=== PATIENT | female | born 1925 | race Caucasian/White ===

== ENCOUNTER 2017-08-04 11:07 | Emergency (ER) | payer OTHER, MEDICARE ==
[2017-08-04 11:13] VITALS: BP 150/67; PULSE 79; TEMP 98.9; BMI 23.1
--- NOTE | 2017-08-04 11:26 | PDOC ---
History of Present Illness - General Chief Complaint: Edema Stated Complaint: RIGHT LEG REDNESS AND SWELLING X 2 DAYS Time Seen by Provider: 08/04/17 11:26 History Source: Patient Exam Limitations: No Limitations - History of Present Illness Initial Comments: 08/04/17 12:04 Pt presents to the ED complaining of a 4 day history of R leg pain and swelling. Denies fever, nausea, vomiting or trauma to the affected leg. Denies prior history of leg swelling. Swelling began 4 days ago, patient took lasix with some relief of her symptoms, but they recurred so she presented to the ED. Denies shortness of breath PMH: reports a history of "heart problems" but denies history of CHF Hyppthyroidism, HTN, High cholesterol Past History - Past Medical History Allergies/Adverse Reactions: Allergies Allergy/AdvReac Type Severity Reaction Status Date / Time No Known Allergies Allergy Verified 08/04/17 11:09 Home Medications: Ambulatory Orders Diltiazem Cd [Cardizem Cd -] 180 mg PO DAILY #0 cap.cd.24h 02/28/12 Levothyroxine Sodium [Pcca T4 Sodium Dilution] 25 mcg PO DAILY@0700 #0 tablet Amox-Tr/K Cl [Augmentin - 500Mg Tablet] 1 tab PO BID #14 tab 08/04/17 Atorvastatin Ca [Lipitor] 10 mg PO HS 08/04/17 Cholecalciferol (Vitamin D3) [D-2000] 0 unit PO ASDIR 08/04/17 Multivitamin [One Daily] 1 each PO DAILY 08/04/17 Cardiac Disorders: Yes CVA: Yes HTN: Yes Hypercholesterolemia: Yes Seizures: Yes (HYPO) - Suicide/Smoking/Psychosocial Hx Smoking Status: Yes Smoking History: Never smoked Years of Tobacco Use: 62 Have you smoked in the past 12 months: No Number of Cigarettes Smoked Daily: 0 Information on smoking cessation initiated: No Hx Alcohol Use: No Drug/Substance Use Hx: No Substance Use Type: None Hx Substance Use Treatment: No Review of Systems - Review of Systems Able to Perform ROS?: No Is the patient limited [place] proficient: No Constitutional: No: Symptoms Reported, See HPI, Chills, Diaphoresis, Fever, Loss of Appetite, Malaise, Night Sweats, Weakness, Weight Stable, Unintentional Wgt. Loss, Unexplained wgt Loss, Other HEENTM: No: Symptoms Reported, See HPI, Eye Pain, Blurred Vision, Tearing, Recent change in vision, Double Vision, Cataracts, Ear Pain, Ocular Prothesis, Ear Discharge, Nose Pain, Nose Congestion, Tinnitus, Nose Bleeding, Hearing Loss , Throat Pain, Throat Swelling, Mouth Pain, Dental Problems, Difficulty Swallowing, Mouth Swelling, Other Respiratory: Yes: Cough. No: Symptoms reported, See HPI, Orthopnea, Shortness of Breath, SOB with Exertion, SOB at Rest, Stridor, Wheezing, Productive cough, Hemoptysis, Other Cardiac (ROS): No: Symptoms Reported, See HPI, Chest Pain, Edema, Irregular Heart Rate, Lightheadedness, Palpitations, Syncope, Chest Tightness, Other ABD/GI: No: Symptoms Reported, See HPI, Abdominal Distended, Abd. Pain w/ defecation, Blood Streaked Bowels, Constipated, Diarrhea, Difficulty Swallowing , Nausea, Poor Appetite, Poor Fluid Intake, Rectal Bleeding, Vomiting, Indigestion, Abdominal cramping, Tarry Stools, Other Musculoskeletal: Yes: Joint Pain, Joint Swelling Integumentary: No: Symptoms Reported, See HPI, Bruising, Change in Color, Change in Hair/Nails, Dryness, Erythema, Flushing, Lesions, Lumps, Pallor, Pruritus, Rash, Sweating, Other Neurological: No: Symptoms reported, See HPI, Headache, Numbness, Paresthesia, Pre-Existing Deficit, Seizure, Tingling, Tremors, Weakness, Unsteady Gait, Ataxia, Dizziness, Other Psychiatric: No: Anxiety, Depression, Frequent Crying, Stressors, Sleep Pattern Change, Emotional Problems, Mood Swings, Change in Appetite, Other Endocrine: No: Symptoms Reported, See HPI, Excessive Sweating, Flushing, Intolerance to Cold, Intolerance to Heat, Increased Hunger, Increased Thirst, Increased Urine, Unexplained Weight Gain, Unexplained Weight Loss, Change in Weight, Other *Physical Exam - Vital Signs Last Vital Signs Temp Pulse Resp BP Pulse Ox 98.9 F 79 16 150/67 97 08/04/17 11:08 08/04/17 11:08 08/04/17 11:08 08/04/17 11:08 08/04/17 11:08 - Physical Exam Comments: 08/04/17 12:15 General Appearance: Yes: Nourished, Appropriately Dressed HEENT: positive: Normal ENT Inspection Neck: positive: Trachea midline, Supple Respiratory/Chest: positive: Lungs Clear, Normal Breath Sounds Cardiovascular: positive: Regular Rhythm, Murmur (systolic murmur loudest in the R second intercostal space.) Gastrointestinal/Abdominal: positive: Flat, Soft. negative: Normal Bowel Sounds , Tender, Organomegaly, Pulsatile Mass, Increased Bowel Sounds, Decreased BS, Protuberent, Distended, Guarding, Rebound, Tenderness, Hernia, Mass, Hepatomegaly, Spleenomegaly, Other Musculoskeletal: positive: Normal Inspection Extremity: positive: Normal Range of Motion, Pedal Edema, Erythema (RLE: erythema and tenderness from the R foot to the R knee) Integumentary: positive: Dry, Warm Neurologic: positive: Fully Oriented, Alert, Normal Mood/Affect ED Treatment Course - LABORATORY CBC & Chemistry Diagram: 08/04/17 11:50 08/04/17 11:50 Medical Decision Making - Medical Decision Making 08/04/17 12:17 Pt presents to the ED complaining of RLE pain and swelling. Exam is consistent with cellulitis vs DVT. No pulmonary symptoms. Will check Us to rule out DVT. Will check labs and start IV antibiotics. 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 Will check labs and then contact Dr. Penaloza, patients PMD. 08/04/17 13:13 duplex is negative for DVT. Labs show no elevation in WBC count. Case discussed with PMD, who agrees with discharge home with po antibiotics. He will see the patient this week. *DC/Admit/Observation/Transfer Diagnosis at time of Disposition: Cellulitis Qualifiers: Site of cellulitis: extremity Site of cellulitis of extremity: lower extremity Laterality: right Qualified Code(s): L03.115 - Cellulitis of right lower limb - Discharge Dispostion Disposition: HOME Condition at time of disposition: Good Admit: No - Prescriptions Prescriptions: Amox-Tr/K Cl [Augmentin - 500Mg Tablet] 1 tab PO BID #14 tab - Patient Instructions Printed Discharge Instructions: DI for Cellulitis -- Adult Additional Instructions: Return immediately to the ED for worsening or spreading redness, fever, severe pain, nausea or vomiting.
[2017-08-04] MEDS ORDERED: CEFAZOLIN 1 GM in DEXTROSE 5%-WATER - 50 ML IVPB ONE (11:51)
[2017-08-04 12:03] LABS: BASOPHIL 0.2 % (0-2.0); EOSINOPHIL 0.9 % (0-4.5); MCH 29.2 pg (25.7-33.7); MCHC 33.5 g/dl (32.0-36.0); MEAN CELL VOLUME 87.3 fl (80-96); NEUTROPHILS 75.1 % (42.8-82.8); PLATELET COUNT 153 K/MM3 (134-434); RDW 14.7 % (11.6-15.6); WHITE BLOOD COUNT 6.9 K/mm3 (4.0-10.8)
[2017-08-04] MEDS ORDERED: ceFAZolin SODIUM 1 GM VIAL ONE (12:06)
[2017-08-04 12:24] LABS: ALK PHOS 62 U/L (32-92); ANION GAP 7 (8-16); BILIRUBIN,TOTAL 0.7 mg/dl (0.2-1.0); CO2 26 mmol/L (22-28); CREATININE 1.1 mg/dl (0.6-1.3); GLUCOSE,RANDOM 117 mg/dl (74-106); SGOT/AST 23 U/L (10-42); SGPT/ALT 10 U/L (10-40); TOT PROT 7.3 g/dl (6.4-8.3)
--- NOTE | 2017-08-05 15:09 | EKG ---
Test Reason : Blood Pressure : / mmHG Vent. Rate : 070 BPM Atrial Rate : 070 BPM P-R Int : 210 ms QRS Dur : 068 ms QT Int : 420 ms P-R-T Axes : 081 023 071 degrees QTc Int : 453 ms SINUS RHYTHM WITH 1ST DEGREE A-V BLOCK CANNOT RULE OUT ANTEROSEPTAL INFARCT (CITED ON OR BEFORE 21-FEB-2012) WHEN COMPARED WITH ECG OF 21-FEB-2012 23:02, NM INTERVAL HAS INCREASED MINIMAL CRITERIA FOR INFERIOR INFARCT ARE NO LONGER PRESENT ANTEROSEPTAL LEADS Confirmed by MD POOL MARJORY ([id number]) on 08/05/2017 3:08:47 PM Referred By: MD CHISHOLM Confirmed By:CLEVELAND POOL MD
== END 2017-08-04 13:52 | disposition home or self-care (01) ==
LOC: FER 11:07
DX: L03.115 Cellulitis of right lower limb (principal); I10 Essential (primary) hypertension; E78.00 Pure hypercholesterolemia, unspecified; Z86.73 Personal history of transient ischemic attack (TIA), and cerebral infarction without residual deficits; I51.9 Heart disease, unspecified
CPT/HCPCS: 36415; 80053; 83605; 85025; 87040; 93005; 93971-TC; 99282-25